=== PATIENT | male | born 1990 | race Caucasian/White ===

== ENCOUNTER 2020-09-07 20:11 | Emergency (ER) | payer OTHER ==
[~2020-09-07] VITALS: Ht 172.7 cm; Wt 93.0 kg
[2020-09-07] MEDS ORDERED: INTESTINEX680 M2 PO (22:12)
[2020-09-07] MEDS ORDERED: IBU400 MG PO (22:12)
[2020-09-07] MEDS ORDERED: AMOX1TAB5 PO (22:12)
== END 2020-09-07 22:43 | disposition home or self-care (01) ==
LOC: ER 20:11
DX: S91.312A Laceration without foreign body, left foot, initial encounter (principal); W45.8XXA Other foreign body or object entering through skin, initial encounter; Y93.89 Activity, other specified; Y92.89 Other specified places as the place of occurrence of the external cause; Y99.8 Other external cause status